=== PATIENT | male | born 1945 | race Caucasian/White ===

== ENCOUNTER 2016-11-26 00:01 | Outpatient (CLI) | payer MEDICARE, OTHER ==
[2013-02-26 12:37] VITALS: BMI 45.6
[2016-11-26 10:09] LABS: BASOPHILS 0.4 % (0.0-2.0); EOSINOPHILS 2.4 % (0-7); HEMATOCRIT 45.7 % (42.0-54.0); HEMOGLOBIN 15.4 g/dL (13.5-17.5); IMMATURE GRANULOCYTES 0.4 % (0-5); LYMPHOCYTES 23.4 % (15-50); MCHC 33.7 g/dL (31.0-37.0); MCV 86.1 fL (80.0-100.0); MEAN PLATELET VOLUME 9.8 fL (7.4-10.4); MONOCYTES 7.9 % (2-11); NEUTROPHILS 65.5 % (40-80); PLATELET COUNT 234 10x3/uL (130-400); RBC 5.31 10x6/uL (4.20-6.10); RDW 14.6 % (11.5-14.5); WBC 12.8 10x3/uL (4.8-10.8)
[2016-11-26 10:26] LABS: APTT 26.9 SECONDS (22.8-39.4); INR 0.99 (0.85-1.17); PROTIME 12.9 SECONDS (11.6-15.0)
--- NOTE | 2016-11-26 10:30 | NUR ---
Rachel vargas from repiratory here patient drank 2 cups of coffee so procedure cancelled had blood work drawn. instructions given per sam chandler to reschedule in 2 weeks and be sure is npo.
--- NOTE | 2016-11-26 12:19 | NUR ---
PT WAS SET UP FOR BRONCHSCOPY PER DR BURROUGHS, WHEN SPEAKING WITH MR ISIDRO PRIOR TO TESTING, I WAS CONFIRMING THAT HE HAD NOT ATE OR DRANK THIS AM AND HE TOLD ME THAT HE HAD DRANK A COUPLE CUPS OF COFFEE OR MORE.I TOLD NURSE THAT I WOULD HAVE TO INFORM DR BURROUGHS OF THIS BEFORE WE STARTED ANYTHING. PT STATED THAT THEY TOLD HIM NOTHING TO EAT SO HE THOUGHT HE COULD DRINK. AFTER SPEAKING WITH DR BURROUGHS WE CANCELED PROCEDURE AND I TOOK HIM A COPY OF THE INSTRUCTIONS DR BURROUGHS SENT HOME WITH THE PATIENT, STATING THAT HE WAS TO HAVE NOTHING TO EAT OR DRINK AFTER MIDNIGHT. PT SAID HE READ THAT BUT IT WAS JUST HABIT TO HAVE COFFEE IN THE AM, AND IT WAS HIS FAULT. PT IS TO BE RESCHEDULED IN 2 WEEKS. I WILL CALL AND CONFIRM WITH PATIENT BEFORE HIS NEST SCHEDULED PROC [facility].
[2016-12-08 10:32] VITALS: BMI 48.7
== END 2016-11-26 23:59 | disposition home or self-care (01) ==
LOC: D.LAB 00:01 → D.OPS 09:29 → EDSTATUS 11:00 → D.LAB 23:59
PROVIDERS: Internal Medicine Pulmonary Disease
DX: J18.9 Pneumonia, unspecified organism (principal); Z53.9 Procedure and treatment not carried out, unspecified reason

== ENCOUNTER 2016-12-08 09:17 | Outpatient (CLI) | payer MEDICARE, OTHER ==
[~2016-12-08] VITALS: Ht 162.6 cm; Wt 128.6 kg
[2016-12-08 09:51] LABS: BASOPHILS 0.3 % (0.0-2.0); EOSINOPHILS 2.7 % (0-7); HEMATOCRIT 44.1 % (42.0-54.0); HEMOGLOBIN 14.8 g/dL (13.5-17.5); IMMATURE GRANULOCYTES 0.5 % (0-5); LYMPHOCYTES 25.3 % (15-50); MCH 28.5 pg (26.0-34.0); MCHC 33.6 g/dL (31.0-37.0); MEAN PLATELET VOLUME 9.6 fL (7.4-10.4); MONOCYTES 7.2 % (2-11); PLATELET COUNT 238 10x3/uL (130-400); RBC 5.19 10x6/uL (4.20-6.10)
[2016-12-08 10:09] LABS: APTT 27.7 SECONDS (22.8-39.4); INR 0.95 (0.85-1.17); PROTIME 12.6 SECONDS (11.6-15.0)
[2016-12-08] MEDS ORDERED: LISINOPRIL10 MG PO (10:18)
[2016-12-08] MEDS ORDERED: GLUCOPHAGE500 MG PO (10:18)
[2016-12-08] MEDS ORDERED: SINGULAIR10 MG PO (10:19)
[2016-12-08] MEDS ORDERED: CLARITIN 10 MG10 MG PO (10:19)
[2016-12-08] MEDS ORDERED: OMEPRAZOLE40 MG PO (10:20)
[2016-12-08] MEDS ORDERED: LANTUS INSULIN10 ML SC (10:25)
[2016-12-08] MEDS ORDERED: TESSALON PERLE100 MG PO (10:25)
[2016-12-08] MEDS ORDERED: MULTIPLE VITAMI1 TA1 PO (10:26)
[2016-12-08] MEDS ORDERED: ARICEPT10 MG PO (10:26)
[2016-12-08] MEDS ORDERED: OYSCO 500+D TAB1 TAB PO (10:26)
[2016-12-08] MEDS ORDERED: OSTEO BI-FLEX1 EAC1 PO (10:27)
[2016-12-08 10:32] VITALS: BP 135/74; Ht 162.6 cm; Wt 128.6 kg
--- NOTE | 2016-12-08 15:20 | NUR ---
PATIENT DRESSED, SITTING IN CHAIR, DISCHARGE INSTRUCTIONS REVIEWED WITH PATIENT AND SPOUSE, PATIENT DISCHARGED HOME VIA WHEELCHAIR TO PRIVATE VEHICLE WITH SPOUSE
[2016-12-09 14:21] LABS: FUNGUS STAIN Final report (())
[2016-12-09 15:24] LABS: ACID FAST SMEAR Negative (()); AFB SPECIMEN PROCESSING Concentration (())
[2016-12-22 15:24] LABS: FUNGUS CULTURE RESULT 1 Cladosporium species (()); FUNGUS MYCOLOGY CULTURE Final report (())
== END 2016-12-08 15:20 | disposition home or self-care (01) ==
LOC: D.OPS 09:17
PROVIDERS: Internal Medicine Pulmonary Disease
DX: J18.9 Pneumonia, unspecified organism (principal); R05 Cough; J30.9 Allergic rhinitis, unspecified; J44.9 Chronic obstructive pulmonary disease, unspecified; K21.9 Gastro-esophageal reflux disease without esophagitis; E66.01 Morbid (severe) obesity due to excess calories; G47.33 Obstructive sleep apnea (adult) (pediatric); Z87.891 Personal history of nicotine dependence; I10 Essential (primary) hypertension; E11.9 Type 2 diabetes mellitus without complications; E78.5 Hyperlipidemia, unspecified; M19.90 Unspecified osteoarthritis, unspecified site

== ENCOUNTER → 2016-12-10 10:37 | Outpatient (CLI) | payer MEDICARE, OTHER ==
[2016-12-08 10:32] VITALS: BMI 48.7
[~2016-12-10 10:37] MED LIST: ARICEPT10 MG PO; CLARITIN 10 MG10 MG PO; GLUCOPHAGE500 MG PO; LANTUS INSULIN10 ML SC; LISINOPRIL10 MG PO; MULTIPLE VITAMI1 TA1 PO; OMEPRAZOLE40 MG PO; OSTEO BI-FLEX1 EAC1 PO; OYSCO 500+D TAB1 TAB PO; SINGULAIR10 MG PO; TESSALON PERLE100 MG PO
== END | disposition home or self-care (01) ==
LOC: D.RT 10:37
DX: J44.9 Chronic obstructive pulmonary disease, unspecified (principal)

== ENCOUNTER → 2017-01-21 09:54 | Outpatient (CLI) | payer MEDICARE, OTHER ==
[2016-12-08 10:32] VITALS: BMI 48.7
== END | disposition home or self-care (01) ==
LOC: D.CT 09:54 → D.LAB 02-04 09:30 → D.RAD 02-04 10:00
DX: R93.8 Abnormal findings on diagnostic imaging of other specified body structures (principal); J44.9 Chronic obstructive pulmonary disease, unspecified

== ENCOUNTER → 2017-02-04 09:05 | Outpatient (CLI) | payer MEDICARE, OTHER ==
[2016-12-08 10:32] VITALS: BMI 48.7
--- NOTE | 2017-02-05 16:36 | EC ---
PATIENT:KENISHA ISIDRO DATE OF SERVICE: 02/04/17 SEX: M MEDICAL RECORD: [id number] DATE OF : 47 [facility] AGE OF PATIENT: 71 ADMISSION DATE: 02/04/17 REFERRING PHYSICIAN: INTERPRETING PHYSICIAN: LEANDRO VENEGAS MD ECHOCARDIOGRAM REPORT ECHO CHARGES 4 ECHO COMPLETE CLINICAL DIAGNOSIS: DYSPNEA ECHOCARDIOGRAPHIC MEASUREMENTS (adult normal given) AC root (d.<3.7cm) 3.6 LV Septum d (<1.2 cm> 1.6 Valve Excursion 2.0 LV Septum (systole) 1.8 Left Atria (s.<4.0cm> 3.7 LVPW d(<1.2cm) 1.4 RV (d.<2.3cm) 4.0 LVPW (sytole) 1.8 LV diastole(<5.6CM) 5.3 MV E-F(>70mm/sec) LV systole 3.4 LVOT Diameter 2.1 MV exc.(>10mm) 0.7 Est.ejection fraction (50-75%) Pericardial Effusion N DOPPLER: LVIT A 66.0 E 56.0 LA RVSP 16 LVOT 93 AOP1/2T Asc. Ao 111 RVOT 116 RA PA 132 AV Gradient Peak 4.94 AV Mean 2.43 AV Area 3.0 MV Gradient Peak 2.37 MV Mean 1.14 MV Area COMMENTS: Electrical Logger: Maci ADAMES Change Management Coordinator:Lucy Venegas TAPE# PACS DATE OF SERVICE: 02/04/2017 FINDINGS: 1. Left ventricular chamber size is within normal limits. Left ventricular systolic function is normal. Overall ejection fraction estimated at 60%. 2. Left atrium, right atrium, and right ventricular chamber sizes are within normal limits. 3. Valvular structures have normal structure and motion. 4. Doppler interrogation only reveals trace tricuspid regurgitation, no other valvular insufficiency or stenosis. ECHOCARDIOGRAM REPORT [id number] KENISHA ISIDRO 5. No evidence of pericardial effusion or left ventricular thrombus. TRANSINT:[id number] Voice Confirmation ID: [id number] DOCUMENT ID: [id number] LEANDRO VENEGAS MD at 1670 CC: [id number] DICTATION DATE: 02/04/17 1631 INTEGRATION SPECIALIST: 02/05/17 0228 DEP CLI 02/04/17 [facility] [address] [place] [address]
== END | disposition home or self-care (01) ==
LOC: D.ECHO 09:05
DX: R06.00 Dyspnea, unspecified (principal)

== ENCOUNTER 2017-06-03 11:34 | Outpatient (CLI) | payer MEDICARE, OTHER ==
[~2017-06-03] VITALS: Ht 162.6 cm; Wt 126.4 kg
--- NOTE | ~2017-06-03 | HEMODYNAMI ---
PATIENT:KENSIHA ISIDRO MEDICAL RECORD: [id number] : 47 LOCATION:[facility] ADMISSION DATE: 06/03/17 Generatedon:06/03/201714:35 Patient name: KENISHA ISIDRO Patient #: [id number] SSN: D OB: 1945 Date of study: 06/03/2017 Page: Of Hemodynamic Procedure Report Patient Data Patient Demographics Procedure consent was obtained First Name: KENISHA Gender: Male Last Name: DWAINE : 1945 Patient #: [id number] Age: 72 year(s) Race: Unknown Additional ID: [id number] Contact details [address]: [address] [place] [address] State: [place] City: [place] Zip code: [address] Past Medical History Allergies: No known allergies Admission Admission Data Admission Date: 06/03/2017 Admission Time: 11:34 Admit Source: Other Procedure Procedure Types Cath Procedure Diagnostic Procedure LHC [facility] w/Coronaries PCI Procedure Coronary Stent Initial Miscellaneous Procedures Moderate Sedation up to 45 minutes Procedure Description Procedure Date Procedure Date: 06/03/2017 Procedure Start Time: 13:28 Procedure End Time: 14:27 Procedure Staff Name Function Chin Buckley MD Performing Physician Jackelyn Reyes RT Scrub Jeanine López RN Nurse Kenisha Ramirez RT Monitor Enma Conrad RT Scrub Jolene Peng RT Monitor Procedure Data Cath Procedure Fluoroscopy Diagnostic fluoroscopy Total fluoroscopy Time: time: 17.6 min 17.6 min Diagnostic fluoroscopy Total fluoroscopy dose: dose: 2593 mGy 2593 mGy Contrast Material Contrast Material Type Amount (ml) Isovue 300 215 Entry Location Entry Primary Successful Side Size Upsize Upsize Entry Closure [place] ccessful Closure Location (Fr) 1 (Fr) 2 (Fr) Remarks Device Remarks Radial Right 6 Fr Mechanical artery Short Compression Femoral Right 6 Fr Exoseal artery Short Estimated blood loss: 5 ml Diagnostic catheters Device Type Used For End Catheter Placement Diagnostic Terumo 5Fr Procedure [place] 110cm catheter Procedure Complications No complications Procedure Medications Medication Administration Route Dosage 0.9% NaCl I.V. 100 ml/hr Oxygen NC 2 l/min Heparin Flush Bag added to field 2 bags (1000units/500ml NS) Radial Cocktail added to field 1 syringe (Verapomil 2mg/Nitro 400mcg/Heparin 1500units) Lidocaine 2% added to field 20 Versed I.V. 1 mg Fentanyl I.V. 50 mcg Radial Cocktail I.A. 1 syringe (Verapomil 2mg/Nitro 400mcg/Heparin 1500units) Heparin Bolus I.V. 5000 units Integrilin (Bolus I.V. 11.3 ml 2mg/ml) Fentanyl I.V. 50 mcg Versed I.V. 1 mg Fentanyl I.V. 50 mcg Fentanyl I.V. 50 mcg Plavix P.O. 600 mg Hemodynamics Rest Heart Rate: 67 (bpm) Pressure Samples Time Site Value (mmHg) Purpose Heart Use Rate(bpm) 13:32 LV 115/17,9 Snapshot 71 13:32 AO 113/65(85) Pullback 81 13:32 LV 124/1,21 Pullback 81 Gradients Valve Time Site 1 Site 2 Mean SEP/DFP Peak To Heart Use (mmHg) (sec/min) Peak Rate (mmHg) (bpm) Aortic 13:32 LV AO 10 13 11 81 124/1,21 113/65(85) Calculations Valve P-P Mean Valve Index Valve Source Name Gradient Area Flow (cm2) Aortic 11 10 11 10 Snapshots Pre Cath Intra NCS Post Cath Vital Signs Time Heart Resp SPO2 etCO2 OR5tqdb NIBP (mmHg) Rhythm Pain Sedation Rate (ipm) (%) (mmHg) (mmHg) Status Level (bpm) 13:02:56 67 22 94 0 0 147/74(116) NSR 0 (11) 10(A) , No pain 13:07:45 67 21 92 0 0 146/75(123) NSR 0 (11) 10(A) , No pain 13:12:30 72 19 92 0 0 136/74(111) NSR 0 (11) 10(A) , No pain 13:17:10 67 21 91 0 0 141/74(102) NSR 0 (11) 10(A) , No pain 13:21:51 67 21 90 0 0 136/71(112) NSR 0 (11) 9(A) , No pain 13:26:32 67 18 91 0 0 136/73(116) NSR 0 (11) 9(A) , No pain 13:31:12 73 21 92 0 0 131/69(103) NSR 0 (11) 9(A) , No pain 13:35:49 74 18 90 0 0 127/69(95) NSR 0 (11) 9(A) , No pain 13:40:23 69 17 92 0 0 133/75(104) NSR 0 (11) 9(A) , No pain 13:45:02 69 23 93 0 0 126/71(106) NSR 0 (11) 10(A) , No pain 13:49:36 71 17 94 0 0 121/76(104) NSR 0 (11) 10(A) , No pain 13:54:09 68 20 95 0 0 136/69(107) NSR 0 (11) 9(A) , No pain 13:58:47 69 21 93 0 0 147/71(116) NSR 0 (11) 9(A) , No pain 14:03:30 63 19 94 0 0 135/74(114) NSR 0 (11) 9(A) , No pain 14:08:10 67 15 93 0 0 147/72(100) NSR 0 (11) 9(A) , No pain 14:12:53 66 19 93 0 0 136/66(106) NSR 0 (11) 9(A) , No pain 14:17:36 64 13 93 0 0 143/65(112) NSR 0 (11) 9(A) , No pain 14:22:16 68 15 90 0 0 158/76(116) NSR 0 (11) 10(A) , No pain 14:26:55 70 25 91 0 0 137/73(97) NSR 0 (11) 10(A) , No pain Medications Time Medication Route Dose Verified Delivered Reason Note s Effectiveness by by 13:07:41 0.9% NaCl I.V. 100 Javid Javid Per physician ml/hr Angy Travis RN RN 13:08:05 Oxygen NC 2 l/min Javid Javid Per physician Angy Travis RN RN 13:08:50 Heparin Flush added 2 bags Javid Javid used for Bag to Angy Travis procedure (1000units/500ml field RN RN NS) 13:17:37 Radial Cocktail added 1 Javid Javid used for (Verapomil to syringe Lorigan Lorigan procedure 2mg/Nitro RN RN 400mcg/Heparin 1500units) 13:20:43 Lidocaine 2% added 20ml Javid Javid for local to vial Lorigan Lorigan anesthetic field RN RN 13:22:32 Versed I.V. 1 mg Javid Javid for sedation Angy Travis RN RN 13:22:44 Fentanyl I.V. 50 mcg Javid Javid for sedation Angy Travis RN RN 13:31:11 Radial Cocktail I.A. 1 Javid Chin for (Verapomil syringe [place] vasodilation 2mg/Nitro ROBBIE CABAN 400mcg/Heparin 1500units) 13:42:40 Heparin Bolus I.V. 5000 Javid Javid for units Lorigan angy anticoagulation RN RN 13:43:09 Integrilin I.V. 11.3 ml Javid Javid for (Bolus 2mg/ml) Angy travis antiplatelet RN RN therapy 13:50:56 Fentanyl I.V. 50 mcg Javid Javid for sedation Angy travis RN RN 14:02:39 Versed I.V. 1 mg Javid Javid for sedation Angy travis RN RN 14:12:31 Fentanyl I.V. 50 mcg Javid Javid for sedation Angy travis RN RN 14:27:11 Fentanyl I.V. 50 mcg Javid Javid for sedation Angy travis RN RN 14:27:29 Plavix P.O. 600 mg Javid Javid for Lormalou travis antiplatelet RN RN therapy Procedure Log Time Note 12:32:45 Informed consent obtained and on chart 12:32:53 Admit Source: Other 12:33:10 Diagnostic Cath status Elective 12:33:13 Time tracking: Regular hours 12:33:16 Plan of Care:Hemodynamics will remain stable., Cardiac rhythm will remain stable., Comfort level will be maintained., Respiratory function will remain adequate., Patient/ family verbilizes understanding of procedure., Procedure tolerated without complication., Recovers from procedure without complications.. 12:34:30 H&P Date Dictated: 05/26/2017 Within 30 days and on chart., H&P Addendum completed by physician on day of procedure. (MUST COMPLETE FOR ALL OUTPATIENTS). 12:47:34 Kenisha WOODS(R) sent for patient. Start room use. 12:53:18 Patient received from Pre/Post Procedure Room to CCL 1 Alert and oriented. Tansferred to table in Supine position. 12:53:19 Warm blankets applied, and jessica hugger turned on for patient comfort. 12:53:20 Correct patient and procedure confirmed by team. 12:54:25 ECG and BP/O2 sat monitors applied to patient. 12:54:26 Full Disclosure recording started 13:01:11 Vital chart was started 13:02:21 Rhythm: sinus rhythm 13:02:26 Pre-procedure instructions explained to patient. 13:02:26 Pre-op teaching completed and patient verbalized understanding. 13:02:27 Family in waiting room. 13:02:29 Patient NPO since Midnight. 13:02:36 Patient allergic to No known allergies 13:02:40 Is the patient allergic to Iodine/contrast media? No. 13:02:42 Is patient on blood thinner?No 13:02:44 Patient diabetic? Yes. 13:02:57 Previous problem with sedation/anesthesia? No ? 13:02:59 Snore? Yes 13:03:00 Sleep apnea? Yes 13:03:06 Deviated septum? No 13:03:12 Opens mouth fully? Yes 13:03:12 Sticks out tongue? Yes 13:03:14 Airway obstruction? Yes COPD 13:03:25 Dentures? No ? 13:04:04 If diabetic: On Metformin? Yes 13:04:07 If on Metformin: Last Dose? 06/01/2017 13:04:12 Pre procedure: right dorsailis pedis pulse 1+ Palpable, but thready & weak; easily obliterated 13:04:15 Modified Andres's test Ulnar < 7 seconds 13:04:17 Patient pain scale 0/10 ?. 13:04:23 IV patent on arrival in left hand with 0.9% NaCl at KVO. 13:04:26 Lab results completed and on chart. 13:04:30 Right Radial & Right Groin area was prepped with chlora-prep and draped in sterile fashion 13:04:30 Alarms reviewed by R. N. 13:04:31 Sharps counted by scrub and verified by R.N. 13:04:33 Use device set Radial Dx 13:04:34 Acist Syringe opened to sterile field. 13:04:34 Medline Cath Pack opened to sterile field. 13:04:35 Bag Decanter opened to sterile field. 13:04:35 St Zachery 260cm J .035 wire opened to sterile field. 13:04:36 Acist Hand Control opened to sterile field. 13:04:36 Acist Manifold opened to sterile field. 13:04:36 Tegaderm 4 x 4 opened to sterile field. 13:04:37 MBrace Wrist Support opened to sterile field. 13:04:43 Merit Prelude Radial Sheath (NO COST SUPPLY) opened to sterile field. 13:07:41 0.9% NaCl 100 ml/hr I.V. was administered by Javid Travis RN; Per physician; 13:08:05 Oxygen 2 l/min NC was administered by Javid Travis RN; Per physician; 13:08:50 Heparin Flush Bag (1000units/500ml NS) 2 bags added to field was administered by Javid Travis RN; used for procedure; 13:09:08 Baseline sample Acquired. 13:17:37 Radial Cocktail (Verapomil 2mg/Nitro 400mcg/Heparin 1500units) 1 syringe added to field was administered by Javid Travis RN; used for procedure; 13:20:43 Lidocaine 2% 20ml vial added to field was administered by Javid Travis RN; for local anesthetic; 13:21:55 Physician arrived 13::55 --------ALL STOP TIME OUT------ 13:21:56 Final Timeout: patient, procedure, and site verified with staff and physician. All members of the team are in agreement. 13:21:59 Right Radial & Right Groin site verified by team. 13:22:02 Physical assessment completed. ASA score P 2 - A patient with mild systemic disease as per Chin Buckley MD. 13:22:07 Sedation plan: IV Moderate Sedation Versed, Fentanyl 13:22:32 Versed 1 mg I.V. was administered by Javid Travis RN; for sedation; ::44 Fentanyl 50 mcg I.V. was administered by Javid Travis RN; for sedation; 13:28:28 Procedure started. 13:28:31 Local anesthetic to right radial artery with Lidocaine 2% by Chin Buckley MD.INITIAL ACCESS ONLY 13:28:38 A 6 Fr Short sheath was inserted into the Right Radial artery 13:30:32 A Diagnostic Terumo 5Fr [place] 110cm catheter was advanced over the wire and used for Procedure. 13:31:11 Radial Cocktail (Verapomil 2mg/Nitro 400mcg/Heparin 1500units) 1 syringe I.A. was administered by Chin Buckley MD; for vasodilation; 13:32:16 LV hemodynamics recorded. 13:32:17 LV gram done using SHELL 13:32:21 Injector settings: Ml/sec: 5, Volume: 15, 13:32:40 EF : 55 % 13:33:00 LCA angiography performed. 13:33:04 Injector settings: Ml/sec: 3, Volume: 6, 13:34:49 RCA angiography performed. 13:34:57 Injector settings: Ml/sec: 3, Volume: 6, 13:36:00 Catheter removed. 13:37:31 Proceeding to intervention. 13:39:23 Medtronic Launcher 6Fr HS I guide catheter opened to sterile field. 13:39:24 Hostspotisper J 300cm 0.014 guide wire opened to sterile field. 13:39:24 Touchmedia BasixCompak Inflation Kit opened to sterile field. 13:39:36 6 Fr HS1 guide catheter was inserted over the wire 13:41:08 cloud.IQISPER wire advanced. 13:41:36 Wire advanced across lesion. 13:42:40 Heparin Bolus 5000 units I.V. was administered by Javid travis RN; for anticoagulation; 13:43:09 Integrilin (Bolus 2mg/ml) 11.3 ml I.V. was administered by Javid travis RN; for antiplatelet therapy; 13:45:09 The Mindjettronic Integrity 3.5 X 9 stent was advanced then removed because of failure to cross lesion 13:49:48 Wire removed. 13:49:51 Guide Catheter removed. unable to get back-up support 13:49:58 Local anesthetic to right femoral artery with Lidocaine 2% by Chin Buckley MD.ADDITIONAL ACCESS 13:50:08 Terumo 6Fr [place] Sheath opened to sterile field. 13:50:21 A 6 Fr Short sheath was inserted into the Right Femoral artery 13:50:56 Fentanyl 50 mcg I.V. was administered by Javid travis RN; for sedation; 13:50:59 Medtronic Launcher 6Fr [place] 2.0 guide catheter opened to sterile field. 13:51:41 6 Fr ar 2 guide catheter was inserted over the wire 13:58:13 Guide Catheter removed. unable to cannulate vessel. 13:58:23 Medtronic Launcher 6Fr HS II guide catheter opened to sterile field. 13:59:32 6 Fr hs 2 guide catheter was inserted over the wire 14:00:19 whisper wire advanced. 14:01:47 Maya's Mom Choice PT Extra Support J 300cm .014 gu opened to sterile field. 14:02:39 Versed 1 mg I.V. was administered by Javid travis RN; for sedation; 14:02:40 whisper wire exchanged for choice pt wire 14:03:48 sprinter 3.0 x 12 balloon prepped and deployed at 10atm for 30 secondsat dist rca 14:04:53 sprinter 3.0 x 12 balloon prepped and deployed at 10atm for 30 seconds at mid rca 14:05:51 sprinter 3.0 x 12 balloon prepped and deployed at 10atm for 30 seconds at prox rca 14:07:05 Balloon removed over the wire. 14:09:48 Blanco Whisper J 300cm 0.014 guide wire opened to sterile field. 14:10:40 choice pt wire exchanged for new whisper wire 14:12:12 Inflation Number: 1 A Medtronic Integrity 3.5 X 9 stent was prepped and advanced across the Mid RCA. The stent was deployed at 14 RAJINDER for 0:30 (min:sec). 14:12:31 Fentanyl 50 mcg I.V. was administered by Javid travis RN; for sedation; 14:12:41 Inflation number: 2 The stent balloon was then re-inflated across the Mid RCA to 14 RAJINDER for 0:30 (min:sec). 14:13:02 Inflation number: 3 The stent balloon was then re-inflated across the Mid RCA to 14 RAJINDER for 0:30 (min:sec). 14:13:34 Inflation number: 4 The stent balloon was then re-inflated across the Mid RCA to 14 RAJINDER for 0:30 (min:sec). 14:14:35 Inflation number: 1 The stent balloon was then re-inflated across the Prox RCA to 14 RAJINDER for 0:30 (min:sec). 14:17:21 Stent catheter was removed intact over wire. 14:18:51 Inflation Number: 2 A Medtronic Integrity 3.5 X 18 stent was prepped and advanced across the Prox RCA. The stent was deployed at 14 RAJINDER for 0:30 (min:sec). 14::31 Stent catheter was removed intact over wire. 14::32 Terumo TR Band Large opened to sterile field. 14:23:15 Inflation Number: 3 A Medtronic Integrity 3.5 X 12 stent was prepped and advanced across the Prox RCA. The stent was deployed at 14 RAJINDER for 0:30 (min:sec). 14::47 Stent catheter was removed intact over wire. 14:25:53 Wire removed. 14:25:53 Guide catheter removed. 14:26:04 Cordis 6Fr Exoseal opened to sterile field. 14:26:12 Sheath removed intact; hemostasis achieved with Exoseal to the Right Femoral artery. 14::20 Sheath removed intact; hemostasis achieved with Mechanical Compression to the Right Radial artery. 14:26:22 Procedure ended.(Physican Out) 14:: Fluoroscopy time 17.60 minutes. 14::37 Flurop Dose total: 2593 14::37 Fluoroscopy dose: 2593 mGy 14::44 Contrast amount:Isovue 300 215ml. 14::47 Sharps counted by scrub and verified by R.N. 14:26:49 TR band inflated with 13cc of air. 14:26:51 Insertion/operative site no bleeding no hematoma. 14:26:53 Post-op/insertion site Right Femoral artery dressed using a 4 x 4 and Tegaderm. 14:26:57 Post right radial artery:stable 14::59 Post Procedure Pulses reassessed and unchanged 14:27:02 Post procedure rhythm: unchanged. 14:27:05 Estimated blood loss: 5 ml 14:27:07 Post procedure instruction explained to patient.Patient verbalizes understanding. 14:27:07 Patient needs reinforcement of post procedure teaching. 14:27:11 Fentanyl 50 mcg I.V. was administered by Javid travis RN; for sedation; 14::21 Procedure type changed to Cath procedure, Diagnostic procedure, LHC, LHC w/Coronaries, PCI procedure, Coronary Stent Initial, Miscellaneous Procedures, Moderate Sedation up to 45 minutes 14:27:22 Procedure and supply charges have been captured, reviewed, submitted and are correct. 14:: Procedure Complication : No complications 14:27:29 Plavix 600 mg P.O. was administered by Javid travis RN; for antiplatelet therapy; 14:27:29 Vital chart was stopped 14:27:30 See physician's report for complete and final results. 14:27:34 Report given to Pre/Post Procedure Room. 14:27:37 Patient transfered to Pre/Post Procedure Room with Stretcher. 14:27:39 Procedure ended. 14:27:39 Full Disclosure recording stopped 14:27:47 ACC-PCI Only Patient was given prescriptions, or instructed by Chin Buckley MD to start/continue the following medications upon discharge: Plavix 14:27:48 End room use (Document Last) Intervention Summary Intervention Notes Time ActionType Lesion and Equipment Action# Pressure Duration Attributes Used 13:45:09 Discard Medtronic Stent Integrity 3.5 X 9 stent 14:12:12 Place stent Mid RCA Medtronic 1 14 00:30 Integrity 3.5 X 9 stent 14:12:41 Reinflate Mid RCA Medtronic 2 14 00:30 stent Integrity balloon 3.5 X 9 stent 14:13:02 Reinflate Mid RCA Medtronic 3 14 00:30 stent Integrity balloon 3.5 X 9 stent 14:13:34 Reinflate Mid RCA Medtronic 4 14 00:30 stent Integrity balloon 3.5 X 9 stent 14:14:35 Reinflate Prox RCA Medtronic 1 14 00:30 stent Integrity balloon 3.5 X 9 stent 14:18:51 Place stent Prox RCA Medtronic 2 14 00:30 Integrity 3.5 X 18 stent 14:23:15 Place stent Prox RCA Medtronic 3 14 00:30 Integrity 3.5 X 12 stent Device Usage Item Name Manufacture Quantity Catalog Number Hospital Part Current [facility] al Lot# / Charge Number Stock Stock Serial# Code Acist Acist 1 47746 [id number] 022499 040524 20 Syringe Medical Systems Inc Medline Cardinal 1 [id number] 45851 596712 5 Cath Pack Health Bag Microtek 1 2001S 769319 90009 125047 [address] Zachery 1 [id number] 547593 020219 035307 30 260cm J .035 wire Acist Hand Acist 1 18682 728638 930495 047807 5 SDI Medical Systems Inc Acist Acist 1 55184 216739 086737 151954 5 Manifold Medical Systems Inc Tegaderm 4 3M 1 1626W 833167 062230 262122 5 x 4 MBrace Advanced 1 140-0250-00 785180 48464 069943 5 Wrist Vascular Support Dynamics Merit Merit 1 735975 051737 5 Prelude Medical Radial Sheath (NO COST SUPPLY) Diagnostic Terumo 1 98-6052 129832 392884 536783 5 Terumo 5Fr [place] 110cm catheter Medtronic Medtronic 1 [id number] 210584 60954 481123 1 Launcher 6Fr HS I guide catheter Blanco Blanco 2 [id number] 817709 994584 742474 5 Whisper J Vascular 300cm 0.014 guide wire Merit Merit 1 [id number] 727278 998269 668770 15 AlgoluxixSolstice Medical Inflation Kit Medtronic Medtronic 2 [id number] 265286 118166 6 [id number] Integrity [id number] 3.5 X 9 stent Terumo 6Fr Terumo 1 [id number] 441227 266594 521782 40 [place] Sheath Medtronic Medtronic 1 [id number] 546516 67100 412580 1 Launcher 6Fr [place] 2.0 guide catheter Medtronic Medtronic 1 [id number] 627896 71655 122336 1 Launcher 6Fr HS II guide catheter [place] Sci [place] 1 [id number] 158775 777321 177560 5 Choice PT Scientific Extra Support J 300cm .014 gu Medtronic Medtronic 1 [id number] 451763 849332 6 [id number] Integrity 3.5 X 18 stent Terumo TR Terumo 1 [id number] 223119 479451 793430 40 Band Large Medtronic Medtronic 1 [id number] 618646 631764 7 [id number] Integrity 3.5 X 12 stent Cordis 6Fr Cardinal 1 [id number] 577896 592659 102280 10 [facility] Netsize Signature Audit [place] Stage Time Signature Unsigned Intra-Procedure 06/03/2017 Jolene Peng 2:35:04 PM RT(R) Signatures Monitor : Kenisha Ramirez RT Signature : Date : Time : Monitor : Jolene Hensonen RT Signature : Date : Time : [place] [address] [place] [address]
[2017-06-03] MEDS ORDERED: HYTRIN5 MG PO (11:49)
[2017-06-03] MEDS ORDERED: OMEPRAZOLE20 M1 PO (11:49)
[2017-06-03] MEDS ORDERED: ADVAIR 250/501 DISK INH (11:50)
[2017-06-03] MEDS ORDERED: IPRAT-ALBUT 0.5-3 ML UPD (11:51)
[2017-06-03] MEDS ORDERED: VENTOLIN HFA18 GM INH (11:51)
[2017-06-03] MEDS ORDERED: NIACIN100 MG PO (11:53)
[2017-06-03] MEDS ORDERED: VITAMIN E400 UNI2 PO (11:53)
[2017-06-03] MEDS ORDERED: FOLATE0.4 MG PO (11:53)
[2017-06-03] MEDS ORDERED: CINNAMON500 MG PO (11:53)
[2017-06-03] MEDS ORDERED: POTASSIUM99 M1 PO (11:53)
[2017-06-03] MEDS ORDERED: VITAMIN C1000 MG PO (11:54)
[2017-06-03 12:03] VITALS: BP 125/66; Ht 162.6 cm; Wt 126.4 kg
[2017-06-03 12:10] LABS: BASOPHILS 0.3 % (0-2); HEMATOCRIT 40.2 % (42.0-54.0); HEMOGLOBIN 13.3 g/dL (13.5-17.5); IMMATURE GRANULOCYTES 0.6 % (0-5); LYMPHOCYTES 15.9 % (15-50); MCH 28.4 pg (26.0-34.0); MCHC 33.1 g/dL (31.0-37.0); MCV 85.9 fL (80.0-100.0); MEAN PLATELET VOLUME 9.9 fL (7.4-10.4); NEUTROPHILS 73.2 % (40-80); PLATELET COUNT 221 10x3/uL (130-400); RBC 4.68 10x6/uL (4.20-6.10); RDW 15.4 % (11.5-14.5); WBC 11.7 10x3/uL (4.8-10.8)
[2017-06-03 12:38] LABS: CALC OSMOLALITY 279 mosm/kg (275-300); CALCIUM 8.7 mg/dL (8.5-10.1); CHLORIDE - SERUM 103 mmol/L (98-107); GLUCOSE 129 mg/dL (74-106); POTASSIUM - SERUM 4.1 mmol/L (3.5-5.1); SODIUM 140 mmol/L (136-145); UREA NITROGEN 10 mg/dL (7-18); eGFR NON AFRICAN AMERICAN 78 mL/min (90-120)
[2017-06-03] MEDS ORDERED: PLAVIX75 MG PO (14:58)
--- NOTE | 2017-06-03 15:00 | NUR ---
TR BAND CDI, NO BLEEDING AT SITE. RIGHT GROIN CDI, NO HEMATOMA OR BLEEDING AT SITE, SOFT TO TOUCH. VSS
--- NOTE | 2017-06-03 15:30 | NUR ---
NO CHANGES NOTED TO WRIST OR GROIN, AT SIDE
--- NOTE | 2017-06-03 19:00 | NUR ---
IV D'C WITH CATH TIP INTACT. BRACE ON RIGHT HAND. WRITTEN AND VERBAL D'C INSTRUCTIONS GIVEN TO PT AND - VERBAL UNDERSTANDING NOTED. D'C HOME WITH . QUESTIONS ANSWERED. STATES FEELING BETTER.
--- NOTE | 2017-06-04 12:17 | OP ---
PATIENT NAME: KENISHA ISIDRO MEDICAL RECORD: [id number] :47 LOCATION:D.CAT ADMISSION DATE: SURGEON: JULIEN GELLER MD DATE OF OPERATION: 06/03/2017 PROCEDURE: Left heart catheterization, selective coronary angiography, right radial approach and right femoral artery. The procedure was tolerated and we proceeded immediately with a PTCA stenting of the right coronary after the procedure was finished. FINDINGS: Left ventriculography in 30-degree SHELL view. Normal wall motion and normal systolic function. CORONARY ANATOMY. LEFT MAIN: Left main is free of disease. LAD: Free of disease in the diagonal system. CIRCUMFLEX: Free of disease in the marginal system. RIGHT CORONARY ARTERY: Dominant artery, gives rise to PDA and has 3 sequential stenoses on the takeoff of the PD and PL, has a 90% stenosis in the mid portion, has deceptive 70% stenosis, more proximal 80% stenosis. We attempted to intervene to the radial; however, due to marked calcification and tortuosity of the mid lesion, we were unable to advance a stent across this; therefore, we exchanged to the femoral system and a hockey stick guide to provide good guide catheter support. We placed initially a Whisper wire down across the distal lesion using a balloon as an exchange catheter, then placed a PT export wire. Balloon was brought back inflated in several areas up to 14 atmospheres pre-deployment. Next, stents were placed in the following fashion, distally a 3.5 x 9 mm Integrity nondrug-eluting stent inflated to 14 atmospheres, mid portion of vessel was addressed with a 3.5 x 18 mm Integrity nondrug-eluting stent and finally proximal stenosis of 80% was addressed with a 3.5 x 12 mm Integrity nondrug-eluting stent. Final angiography shows excellent resolution of all 3 lesions to no significant residual. SARBJIT flow was 3 throughout the procedure. Integrilin was used in the case. Plavix was loaded in the lab. Sheath closed with ExoSeal device and TR band on the radial side. TRANSINT:[id number] Voice Confirmation ID: [id number] DOCUMENT ID: [id number] JULIEN GELLER MD at 1217 CC: [id number] DICTATION DATE: 06/03/17 1436 LITIGATION ASSISTANT: 06/03/17 2233 DEP CLI 06/03/17 [facility] [address] [place] [address]
== END 2017-06-03 19:00 | disposition home or self-care (01) ==
LOC: D.CATH 11:34
PROVIDERS: Internal Medicine Interventional Cardiology
DX: I20.9 Angina pectoris, unspecified (principal); R06.02 Shortness of breath; E78.5 Hyperlipidemia, unspecified; E11.9 Type 2 diabetes mellitus without complications; Z01.812 Encounter for preprocedural laboratory examination

== ENCOUNTER → 2017-08-02 09:27 | Outpatient (CLI) | payer MEDICARE, OTHER ==
[2017-06-03 12:03] VITALS: BMI 47.8
[~2017-08-02 09:27] MED LIST changes: +ADVAIR 250/501 DISK INH; +CINNAMON500 MG PO; +FOLATE0.4 MG PO; +HYTRIN5 MG PO; +IPRAT-ALBUT 0.5-3 ML UPD; +NIACIN100 MG PO; +OMEPRAZOLE20 M1 PO; +PLAVIX75 MG PO; +POTASSIUM99 M1 PO; +VENTOLIN HFA18 GM INH; +VITAMIN C1000 MG PO; +VITAMIN E400 UNI2 PO
== END | disposition home or self-care (01) ==
LOC: D.RAD 09:27
DX: J44.9 Chronic obstructive pulmonary disease, unspecified (principal)

== ENCOUNTER 2018-08-06 16:39 | Emergency (ER) | payer MEDICARE, OTHER ==
[~2018-08-06] VITALS: Ht 162.6 cm; Wt 125.0 kg
[2018-08-06 16:44] VITALS: Ht 162.6 cm; Wt 125.0 kg
[2018-08-06 17:06] LABS: BASOPHILS 0.3 % (0-2); HEMATOCRIT 48.1 % (42.0-54.0); HEMOGLOBIN 15.6 g/dL (13.5-17.5); IMMATURE GRANULOCYTES 0.4 % (0-5); LYMPHOCYTES 22.3 % (15-50); MCH 27.7 pg (26.0-34.0); MCHC 32.4 g/dL (31.0-37.0); MCV 85.4 fL (80.0-100.0); MEAN PLATELET VOLUME 9.7 fL (7.4-10.4); MONOCYTES 8.8 % (2-11); NEUTROPHILS 65.2 % (40-80); PLATELET COUNT 238 10x3/uL (130-400); RBC 5.63 10x6/uL (4.20-6.10); RDW 15.7 % (11.5-14.5); WBC 11.5 10x3/uL (4.8-10.8)
[2018-08-06 17:14] LABS: APTT 27.4 SECONDS (22.8-39.4); INR 1.07 (0.85-1.17); PROTIME 13.5 SECONDS (11.6-15.0)
[2018-08-06 17:19] LABS: ALBUMIN 3.5 g/dL (3.4-5.0); ANION GAP 8.7 mmol/L (8-16); BILIRUBIN - TOTAL 0.29 mg/dL (0.2-1.3); CALCIUM 8.8 mg/dL (8.5-10.1); CARBON DIOXIDE 32.2 mmol/L (21.0-32.0); CREATININE - SERUM 1.2 mg/dL (0.6-1.3); POTASSIUM - SERUM 3.9 mmol/L (3.5-5.1); PROTEIN - SERUM 7.7 g/dL (6.4-8.2)
[2018-08-06 20:22] VITALS: BP 136/60
== END 2018-08-06 18:57 | disposition home or self-care (01) ==
LOC: D.ER 16:39
PROVIDERS: Family Medicine
DX: R04.0 Epistaxis (principal); E11.9 Type 2 diabetes mellitus without complications; I10 Essential (primary) hypertension; J44.9 Chronic obstructive pulmonary disease, unspecified; G71.00 Muscular dystrophy, unspecified

== ENCOUNTER → 2018-11-09 09:25 | Outpatient (CLI) | payer MEDICARE, OTHER ==
[2018-08-06 16:44] VITALS: BMI 47.3
== END | disposition home or self-care (01) ==
LOC: D.RT 09:00
DX: J45.909 Unspecified asthma, uncomplicated (principal); J44.9 Chronic obstructive pulmonary disease, unspecified; R93.89 Abnormal findings on diagnostic imaging of other specified body structures

== ENCOUNTER → 2019-09-29 09:49 | Outpatient (CLI) | payer MEDICARE, OTHER ==
[2018-08-06 16:44] VITALS: BMI 47.3
--- NOTE | ~2019-09-29 | EC ---
PATIENT:KENISHA ISIDRO DATE OF SERVICE: 09/29/19 SEX: M MEDICAL RECORD: [id number] DATE OF : 47 [facility] AGE OF PATIENT: 74 ADMISSION DATE: 09/29/19 REFERRING PHYSICIAN: INTERPRETING PHYSICIAN: JULIEN GELLER MD ECHOCARDIOGRAM REPORT ECHO CHARGES 4 ECHO COMPLETE Date: 09/29/19 CLINICAL DIAGNOSIS: HTN HX OF CAD/MITRAL/TRICUSPID REGURG ECHOCARDIOGRAPHIC MEASUREMENTS (adult normal given) AC root (d.<3.7cm) 3.7 cm LV Septum d (<1.2 cm> 1.8 cm Valve Excursion cm LV Septum (systole) 2.2 cm Left Atria (s.<4.0cm> 3.6 cm LVPW d(<1.2cm) 2.2 cm RV (d.<2.3cm) 4.1 cm LVPW (sytole) 2.4 cm LV diastole(<5.6CM) 6.7 cm MV E-F(>70mm/sec) cm LV systole 4.3 cm LVOT Diameter 2.0 cm MV exc.(>10mm) cm Est.ejection fraction (50-75%) % DOPPLER: LVIT cm/sec A 086.0cm/sec E 66. cm/sec LA cm/sec RVSP 17 mmHg LVOT 114 cm/sec AOP1/2T m/s Asc. Ao 165 cm/sec RVOT cm/sec RA cm/sec PA cm/sec AV Gradient Peak 10.86mmHg AV Mean 5.72 mmHg AV Area 2.1 cm MV Gradient Peak 3.68 mmHg MV Mean 1.71 mmHg MV Area cm COMMENTS: Electrician Chief: 2 LAWANDA ADAMES Fabric Stretcher: 3 Dr. Buckley TAPE# PACS Pericardial Effusion N DATE OF SERVICE: Adequate 2D, Color Flow, Spectral Doppler, M-Mode LVH is present. LV internal dimension is normal. Wall motion is normal. EF is greater than or equal to 55%. Aortic valve is tricuspid. No evidence of stenosis on Doppler interrogation. Left atrium normal 3.6. Mitral valve shows no prolapse. Mild MR. Right-sided chambers are grossly normal. Trace TR. TRANSINT:[id number] Voice Confirmation ID: [id number] DOCUMENT ID: [id number] ECHOCARDIOGRAM REPORT [id number] DWAINE,JULIEN GRAYSON MD CC: [id number] DICTATION DATE: 10/02/19 1518 DIRECTOR OF STUDENT AID: 10/02/19 1837 DEP CLI 09/29/19 [id number] [place] [address]
== END | disposition home or self-care (01) ==
LOC: D.HCCECHO 09:49
PROVIDERS: ATTEND Internal Medicine Interventional Cardiology
DX: I10 Essential (primary) hypertension (principal)

== ENCOUNTER 2020-12-09 07:36 | Day surgery (SDC) | payer MEDICARE, OTHER ==
[~2020-12-09] VITALS: Ht 162.6 cm; Wt 127.4 kg
--- NOTE | ~2020-12-09 | HEMODYNAMI ---
PATIENT:KENISHA ISIDRO MEDICAL RECORD: [id number] : 47 LOCATION:HETAL ADMISSION DATE: 12/09/20 Generatedon:110:26 Patient name: KENISHA ISIDRO Patient #: [id number] SSN: D OB: 1945 Date of study: 12/09/2020 Page: Of Hemodynamic Procedure Report Patient Data Patient Demographics Procedure consent was obtained First Name: KENISHA Gender: Male Last Name: DWAINE : 1945 Patient #: [id number] Age: 75 year(s) Race: Unknown Additional ID: [id number] Contact details [address]: [address] [place] [address] State: [place] City: [place] Zip code: [address] Past Medical History Allergies: No known allergies Admission Admission Data Admission Date: 12/09/2020 Admission Time: 7:36 Lab Results Lab Result Date: 12/09/2020 Lab Result Time: 0:00 Biochemistry Name Units Result Min Max BUN mg/dl 15 --(--*-)-- 7 18 Creatinine mg/dl 1 --(--*-)-- 0.6 1.3 eGFR ml/min 78 *-(----)-- 90 120 NONAFRICAN CBC Name Units Result Min Max Hemoglobin g/dl 12.5 *-(----)-- 13.5 17.5 Procedure Procedure Types Cath Procedure Diagnostic Procedure [facility] w/Coronaries Sedation Charges Moderate Sedation 10-24 minutes Procedure Description Procedure Date Procedure Date: 12/09/2020 Procedure Start Time: 10:14 Procedure End Time: 10:25 Procedure Staff Name Function Chin Pablo MD Performing Physician Olivia Parada RT Monitor Jackelyn Reyes RT Scrub Bailey Cheng RN Nurse Procedure Data Cath Procedure Fluoroscopy Diagnostic fluoroscopy Total fluoroscopy Time: 1.6 time: 1.6 min min Diagnostic fluoroscopy Total fluoroscopy dose: 939 dose: 939 mGy mGy Contrast Material Contrast Material Type Amount (ml) Isovue 300 74 Entry Location Entry Primary Successful Side Size Upsize Upsize Entry Closure Succes sful Closure Location (Fr) 1 (Fr) 2 (Fr) Remarks Device Remarks Femoral Right 5 Fr Exoseal artery Estimated blood loss: 10 ml Diagnostic catheters Device Type Used For End Catheter Placement MULTIPACK JL 4.0 5Fr Procedure catheter MULTIPACK 3DRC 5Fr Procedure catheter MULTIPACK Pigtail 5 Fr Ventriculography catheter Procedure Complications No complications Procedure Medications Medication Administration Route Dosage Oxygen etCO2 Nasal cannula 2 l/min Lidocaine 2% added to field 20 Heparin Flush Bag added to field 2 bags (1000units/500ml NS) 0.9% NaCl I.V. 100 ml/hr Fentanyl I.V. 50 mcg Versed I.V. 1 mg Fentanyl I.V. 25 mcg Versed I.V. 0.5 mg Hemodynamics Rest HGB: 12.5 (g/dl) Heart Rate: 76 (bpm) Pressure Samples Time Site Value (mmHg) Purpose Heart Use Rate(bpm) 10:20 LV 144/19,28 Snapshot 77 Gradients Valve Time Site Site Mean SEP/DFP Peak To Heart Use 1 2 (mmHg) (sec/min) Peak Rate (mmHg) (bpm) Aortic 10:20 LV AO 81 Snapshots Pre Cath Intra NCS Post Cath Vital Signs Time Heart Resp SPO2 etCO2 NIBP (mmHg) Rhythm Pain Sedation Rate (ipm) (%) (mmHg) Status Level (bpm) 10:04:07 73 22 97 28.4 178/93(145) NSR 0 (11) 10(A) , No pain 10:08:43 76 16 95 2.9 166/90(127) NSR 0 (11) 10(A) , No pain 10:13:16 77 18 94 11.2 167/92(130) NSR 0 (11) 10(A) , No pain 10:17:48 80 21 93 8.2 183/96(144) NSR 0 (11) 9(A) , No pain 10:22:25 79 21 94 32.1 190/103(149) NSR 0 (11) 9(A) , No pain Medications Time Medication Route Dose Verified Delivered Reason Notes E ffectiveness by by 10:04:28 Oxygen etCO2 2 l/min Bailey Avalos for low Nasal Cheng, Skylar, 02 sats cannula RN RN 10:04:36 Lidocaine 2% added 20ml Bailey Chin used for to vial St Alber Cheng procedure field ROBBIE CABAN 10:04:45 Heparin Flush added 2 bags Bailey Bailey used for Bag to Skylar Cheng, procedure (1000units/500ml field RN RN NS) 10:04:53 0.9% NaCl I.V. 100ml/hr Bailey Bailey Per Skylar Cheng, physician RN RN 10:09:40 Fentanyl I.V. 50 mcg Bailey Bailey for Cheng, Cheng, sedation RN RN 10:09:45 Versed I.V. 1 mg Bailey Bailey for Cheng, Cheng, sedation RN RN 10:14:23 Fentanyl I.V. 25 mcg Bailey Bailey for Cheng, Cheng, sedation RN RN 10:14:27 Versed I.V. 0.5 mg Bailey Bailey for Cheng, Cheng, sedation RN solutions architect Log Time Note 9:40:16 Informed consent obtained and on chart 9:40:38 Procedure Status Elective Heart Cath (OP). 9:40:39 Time tracking: Regular hours (M-F 7:00 - 5:00) 9:40:43 Plan of Care:Hemodynamics will remain stable., Cardiac rhythm will remain stable., Comfort level will be maintained., Respiratory function will remain adequate., Patient/ family verbilizes understanding of procedure., Procedure tolerated without complication., Recovers from procedure without complications.. 9:51:13 H&P Date Dictated: 12/02/2020 Within 30 days and on chart., H&P Addendum completed by physician on day of procedure. (MUST COMPLETE FOR ALL OUTPATIENTS). 9:51:24 Patient allergic to No known allergies 9:54:39 Patient received from Pre/Post Procedure Room to CCL 2 Alert and oriented. Tansferred to table in Supine position. 9:54:41 Warm blankets applied, and jessica hugger turned on for patient comfort. 9:54:41 Correct patient and procedure confirmed by team. 9:54:41 ECG and BP/O2 sat monitors applied to patient. 10:02:39 Vital chart was started 10:02:40 Baseline sample Acquired. 10:02:44 Rhythm: sinus rhythm 10:02:46 Full Disclosure recording started 10:02:48 Pre-procedure instructions explained to patient. 10:02:51 Family unavailable. 10:02:53 Patient NPO since Midnight. 10:02:56 Is the patient allergic to Iodine/contrast media? No. 10:03:03 Was the patient premedicated? Yes 10:03:09 Is patient on blood thinner?No 10:03:11 Patient diabetic? Yes. 10:03:14 If diabetic: On Metformin? Unknown 10:03:28 Snore? Yes 10:03:29 Sleep apnea? Yes 10:03:32 Deviated septum? No 10:03:33 Opens mouth fully? Yes 10:03:34 Sticks out tongue? Yes 10:03:41 Patient pain scale 0/10 ?. 10:04:28 Oxygen 2 l/min etCO2 Nasal cannula was administered by Bailey Cheng RN; for low 02 sats; Verbal order read back and verified. 10:04:36 Lidocaine 2% 20ml vial added to field was administered by Chin Pablo MD; used for procedure; Verbal order read back and verified. 10:04:45 Heparin Flush Bag (1000units/500ml NS) 2 bags added to field was administered by Bailey Cheng RN; used for procedure; Verbal order read back and verified. 10:04:53 0.9% NaCl 100ml/hr I.V. was administered by Bailey Cheng RN; Per physician; Verbal order read back and verified. 10:08:33 Lab Result : BUN 15 mg/dl 10:08:33 Lab Result : Creatinine 1 mg/dl 10:08:33 Lab Result : eGFR NONAFRICAN 78 ml/min 10:08:33 Lab Result : Hemoglobin 12.5 g/dl 10:08:39 Lab results completed and on chart. 10:08:57 Stress Test: yes; abnormal inferior basil 10:09:02 Right groin area was prepped with chlora-prep and draped in sterile fashion 10::04 Alarms reviewed by Celestina Fontenot. 10::05 Sharps counted by scrub and verified by CelestinaN. 10:09: Physician arrived 10::11 --------ALL STOP TIME OUT------ 10::13 Final Timeout: patient, procedure, and site verified with staff and physician. All members of the team are in agreement. 10:09:40 Fentanyl 50 mcg I.V. was administered by Bailey Cheng RN; for sedation; Verbal order read back and verified. 10:09:45 Versed 1 mg I.V. was administered by Bailey Cheng RN; for sedation; Verbal order read back and verified. 10:09:58 Right groin site verified by team. 10:10:02 Fire Safety Assessment: A--An alcohol-based skin anteseptic being used preoperatively., C--Open oxygen or nitrous oxide is being used., D--An ESU, laser, or fiber-optic light is being used. 10:10:09 Physical assessment completed. ASA score P 3 - A patient with severe systemic disease as per Chin Pablo MD. 10:10:12 2) 60-89 Mildly reduced kidney function, and other findings (as for stage 1) point to kidney disease. 10:10:17 Maximum allowable contrast dose (3.7 X eGFR X 0.75)216 ml. 10:10:22 Sedation plan: IV Moderate Sedation Medication:Versed, Fentanyl 10:10:28 Use device set Femoral Dx 10:10:47 ACIST Syringe (38802) opened to sterile field. 10:10:48 Bag Decanter (2002S) opened to sterile field. 10:10:48 Medline Cath Pack ([id number]) opened to sterile field. 10:10:50 ACIST Hand Control (09504) opened to sterile field. 10:10:50 ACIST Manifold (08275) opened to sterile field. 10:10:51 DIAGNOSTIC Multipack 5Fr catheter set (ZS4002) opened to sterile field. 10:10:52 Tegaderm 4 x 4 (1626W) opened to sterile field. 10:10:54 SHEATH 5FR Holabird (HXJ826) opened to sterile field. 10:10:55 EMERALD Guide Wire (636-594) opened to sterile field. 10:14:12 Risk of Mortality: .1 10:14:16 Risk of blood transfusion: 4.0 10:14:21 Risk of ROSAURA: 3.7 10:14:23 Fentanyl 25 mcg I.V. was administered by Bailey Cheng RN; for sedation; Verbal order read back and verified. 10:14:25 Procedure started. 10:14:27 Versed 0.5 mg I.V. was administered by Bailey Cheng RN; for sedation; Verbal order read back and verified. 10:14:33 Local anesthetic to right femoral artery with Lidocaine 2% by Chin Pablo MD.INITIAL ACCESS ONLY 10:14:43 A 5 Fr sheath was inserted into the Right Femoral artery 10:16:10 J wire advanced. 10:16:24 A MULTIPACK JL 4.0 5Fr catheter was advanced over the wire and used for Procedure. 10:17:18 LCA angiography performed. 10:18:31 Catheter removed. 10:19:03 A MULTIPACK 3DRC 5Fr catheter was advanced over the wire and used for Procedure. 10:19:07 RCA angiography performed. 10:20:10 Catheter removed. 10:20:17 A MULTIPACK Pigtail 5 Fr catheter was advanced over the wire and used for Ventriculography. 10:20:20 LV gram done using SHELL 10:20:25 EF : 55 % 10:20:36 Catheter removed. 10:22:21 EXOSEAL 5Fr (EX500) opened to sterile field. 10:22:33 Sheath removed intact; hemostasis achieved with Exoseal to the Right Femoral artery. 10:22:35 Procedure ended.(Physican Out) 10:22:44 Fluoroscopy time 01.60 minutes. 10:22:50 Fluoroscopy dose: 939 mGy 10:22:50 Flurop Dose total: 939 10:22:55 Dose Area Product 67807 mGy/cm. 10:23:00 Contrast amount:Isovue 300 74ml. 10:23:06 Maximum allowable dose exceeded? No. 10:23:08 Sharps counted by scrub and verified by R.N. 10:23:09 Insertion/operative site no bleeding no hematoma. 10:23:15 Post Procedure Pulses reassessed and unchanged 10:23:19 Post-procedure physical assessment completed. ASA score P 2 - A patient with mild systemic disease as per Chin Pablo MD. 10:23:22 Post procedure rhythm: unchanged. 10:23:25 Estimated blood loss: 10 ml 10:23:39 Post procedure instruction explained to patient.Patient verbalizes understanding. 10:24:40 Procedure type changed to Cath procedure, Diagnostic procedure, LHC, LHC w/Coronaries, Sedation Charges, Moderate Sedation 10-24 minutes 10:24:40 Procedure and supply charges have been captured, reviewed, submitted and are correct. 10:25:00 Procedure Complication : No complications 10:25:03 Vital chart was stopped 10:25:14 [facility] Findings: mild to moderate CAD (<70%) 10:25:20 Operative report dictated upon procedure completion. 10:25:20 See physician's report for complete and final results. 10:25:23 Report given to Pre/Post Procedure Room. 10:25:25 Patient transfered to Pre/Post Procedure Room with Stretcher. 10:25:27 Procedure ended. 10:25:27 Full Disclosure recording stopped 10:25:33 End room use (Document Last) 10:26:00 End room use (Document Last) 10:26:21 End room use (Document Last) Device Usage Item Name Manufacture Quantity Catalog Hospital Part Current Minimal L ot# / Number Charge Number Stock Stock Serial# Code ACIST Acist 1 86851 052287 948165 147667 20 Syringe Medical (22560) Systems Inc Bag Microtek 1 836795 38914 704366 5 Decanter Medical Inc. () Medline Medline 1 [id number] 494371 31776 898074 5 Cath Pack ([id number]) ACIST Hand Acist 1 87401 839439 512508 684144 5 Control Medical (14853) Systems Inc ACIST Acist 1 26933 396080 096093 431245 5 Manifold Medical (98507) Systems Inc DIAGNOSTIC Cardinal 1 [id number] 871311 91193 742155 30 Multipack Health 5Fr catheter set (OC6294) Tegaderm 4 3M 1 1626W 623043 610688 279197 5 x 4 (1626W) SHEATH 5FR Terumo 1 [id number] 870722 496659 422251 5 Holabird (FWZ777) EMERALD Cardinal 1 502-455 264602 022288 486247 5 Guide Wire Health (502-455) MULTIPACK Cardinal 1 808776 5 JL 4.0 5Fr Health catheter MULTIPACK Cardinal 1 316816 5 3DRC 5Fr Health catheter MULTIPACK Cardinal 1 819503 5 Pigtail 5 Health Fr catheter EXOSEAL 5Fr Cardinal 1 EX500 268711 467208 915873 10 (EX500) Health Signature Audit [address] Stage Time Signature Unsigned Intra-Procedure 12/09/2020 Olivia Parada 10:26:00 AM RT(R) Intra-Procedure 12/09/2020 Bailey Cheng, 10:26:22 AM RN Intra-Procedure 12/09/2020 Chin Garay 10:26:53 AM Alber Cohen Performing Physician : Signature : Chin Pablo MD Date : Time : Monitor : Olivia Parada Signature : RT Date : Time : Nurse : Bailey Cheng, Signature : RN Date : Time : [facility] [address] [place] [address]
[2020-12-09 08:35] VITALS: BP 156/62; Ht 162.6 cm; Wt 127.4 kg
[2020-12-09 08:46] LABS: BASOPHILS 0.3 % (0-2); EOSINOPHILS 3.9 % (0-7); HEMATOCRIT 38.2 % (42.0-54.0); HEMOGLOBIN 12.5 g/dL (13.5-17.5); IMMATURE GRANULOCYTES 0.6 % (0-5); LYMPHOCYTE ABS# 2.21 10x3/uL (1.32-3.57); LYMPHOCYTES 18.6 % (15-50); MCH 28.3 pg (26.0-34.0); MCHC 32.7 g/dL (31.0-37.0); MCV 86.6 fL (80.0-100.0); MEAN PLATELET VOLUME 9.4 fL (7.4-10.4); MONOCYTES 8.2 % (2-11); NEUTROPHIL ABS# 8.16 10x3/uL (1.78-5.38); NEUTROPHILS 68.4 % (40-80); RBC 4.41 10x6/uL (4.20-6.10); RDW 13.5 % (11.5-14.5); WBC 11.9 10x3/uL (4.8-10.8)
[2020-12-09] MEDS ORDERED: GABAPENTIN100 MG PO (08:48)
[2020-12-09] MEDS ORDERED: PERCOCET 10-321 EAC1 PO (08:49)
[2020-12-09] MEDS ORDERED: LIPITOR10 MG PO (08:49)
[2020-12-09 08:50] LABS: PLATELET COUNT 305 10x3/uL (130-400)
[2020-12-09] MEDS ORDERED: COZAAR25 MG PO (08:50)
[2020-12-09] MEDS ORDERED: HUMALOG 30100 UNITS/ (08:52)
[2020-12-09 09:01] LABS: ALT (SGPT) 43 U/L (10-68); CALC OSMOLALITY 278 mosm/kg (275-300); CALCIUM 9.1 mg/dL (8.5-10.1); CARBON DIOXIDE 29.1 mmol/L (21.0-32.0); CHLORIDE - SERUM 103 mmol/L (98-107); CHOL - HDL RATIO 2.2 ratio (2.3-4.9); CHOLESTEROL, TOTAL 86 mg/dL (0-200); GLUCOSE 137 mg/dL (74-106); HDL CHOLESTEROL 39 mg/dL (32-96); LDL CHOLESTEROL 23 mg/dL (0-100); LDL-HDL RATIO 0.6 ratio (1.5-3.5); SODIUM 138 mmol/L (136-145); TRIGLYCERIDE 122 mg/dL (30-200); UREA NITROGEN 15 mg/dL (7-18); eGFR NON AFRICAN AMERICAN 78 mL/min (90-120)
--- NOTE | 2020-12-09 10:34 | NUR ---
PT ARRIVED BY STRETCHER ROOM 3. PLACED ON MONITORS. ASSESSMENT COMPLETED. VSS AT THIS TIME. CALL LIGHT WITHIN REACH.
--- NOTE | 2020-12-09 10:50 | NUR ---
PT RESTING COMFORTABLY. VSS. RIGHT GROIN DRESSING C/D/I. NO S/S OF HEMATOMA NOTED. RIGHT PEDAL PULSE PALPABLE. CALL LIGHT WITHIN REACH. NO NEEDS AT THIS TIME.
--- NOTE | 2020-12-09 10:57 | NUR ---
DR. GELLER ROUNDED AND SPOKE WITH PT.
--- NOTE | 2020-12-09 11:30 | NUR ---
RIGHT GROIN DRESSING C/D/I. NO S/S OF HEMATOMA NOTED. CALL LIGHT WITHIN REACH. RIGHT PEDAL PULSE PALPABLE. HEAD OF BED INC TO 30 DEGREES. TOLERATED WELL. SET UP WITH SANDWICH TRAY AND DRINK. NO OTHER NEEDS AT THIS TIME.
--- NOTE | 2020-12-09 12:15 | NUR ---
RIGHT GROIN DRESSING C/D/I. NO S/S OF HEMATOMA NOTED. RIGHT PEDAL PULSE PALPABLE. PIV D/C'D WITH CATH TIP INTACT. TOLERATED WELL. PT INSTRUCTED TO GET UP AND DRESSED AT THIS TIME.
--- NOTE | 2020-12-09 12:20 | NUR ---
PT AMBULATED TO RESTROOM. VOIDED WITHOUT DIFFICULTY. STEADY GAIT NOTED. DISCUSSED DISCHARGE INSTRUCTIONS WITH PT. HE VOICED UNDERSTANDING.
--- NOTE | 2020-12-09 12:30 | NUR ---
PT TAKEN OUT TO VEHICLE BY WHEELCHAIR. NO S/S OF DISTRESS NOTED. ALL BELONGINGS AND PAPERWORK IN HAND.
--- NOTE | 2020-12-10 13:52 | OP ---
PATIENT NAME: KENISHA ISIDRO MEDICAL RECORD: [id number] :47 LOCATION:D.CAT ADMISSION DATE: SURGEON: JULIEN GELLER MD DATE OF OPERATION: 12/09/2020 PROCEDURES: Left heart catheterization, selective coronary angiography, right femoral artery approach. CATHETERS: A 5-Burkinan sheath, 5/4 left and right Yamila, 5/4 pig. The procedure was well tolerated. The patient was returned to the [place]. Sheath removed. ExoSeal device was placed. FINDINGS: Left ventriculography in 30-degree SHELL view; normal wall motion, normal systolic function. CORONARY ANATOMY: LEFT MAIN: Left main is free of disease. LAD: Free of disease in the diagonal system. CIRCUMFLEX: Small circumflex, free of disease. RIGHT CORONARY: Large dominant right, previously placed stent is widely patent. No progression of tatitlek disease. IMPRESSION: No evidence of restenosis. No progression of tatitlek disease. Left ventricular function remains normal. TRANSINT:[id number] Voice Confirmation ID: [id number] DOCUMENT ID: [id number] JULIEN GELLER MD at 1352 CC: [id number] DICTATION DATE: 12/09/20 1052 CASTING AND LOCKER ROOM SERVICER: 12/09/20 1443 [facility] 12/09/20 [facility] [address] [place] [address]
== END 2020-12-09 12:30 | disposition home or self-care (01) ==
LOC: D.CATH 07:36 → EDSTATUS 09:30 → D.CATH 12:30
PROVIDERS: ATTEND Internal Medicine Interventional Cardiology
DX: I25.119 Atherosclerotic heart disease of native coronary artery with unspecified angina pectoris (principal); E78.5 Hyperlipidemia, unspecified; E11.9 Type 2 diabetes mellitus without complications; R94.30 Abnormal result of cardiovascular function study, unspecified